=== PATIENT | female | born 2000 | race Caucasian/White ===

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

== ENCOUNTER 2021-02-17 19:42 | Emergency (ER) | payer BC, SELFPAY ==
--- NOTE | 2021-02-17 19:43 | ED.URI ---
HPI - URI/Sore Throat General Chief Complaint: Upper Respiratory Infection Stated Complaint: CONGESTION/SORE THROAT/HEADACHE Time Seen by Provider: 02/17/21 19:43 Source: patient and RN notes reviewed History of Present Illness HPI Narrative: Patient is a 20-year-old female who presents the urgent care with complaints of cough, sore throat, congestion and headache. Patient states that the congestion started 3 days ago but most of her symptoms just started yesterday. Patient states that she was worse when she woke up today. Patient has been taking Irena-[place] and Aleve for her symptoms. Patient denies of any recent Covid exposures. States that she has had the Covid vaccine. Patient denies any fever, nausea, vomiting. No other acute complaints. No acute distress noted. Patient aware of the plan of care. Some parts of this dictation were generated by voice recognition software and may contain typographical and/or grammatical inaccuracies. Related Data Home Medications Medication Instructions Recorded Confirmed fludrocortisone 0.1 mg PO DAILY 01/26/20 10/24/20 sertraline 25 mg PO DAILY 01/26/20 10/24/20 norethindrone-e.estradiol-iron 1 tablet PO DAILY 10/24/20 10/24/20 guanfacine 2 mg PO DAILY 02/17/21 02/17/21 midodrine 2.5 mg PO TID 02/17/21 02/17/21 Allergies Allergy/AdvReac Type Severity Reaction Status Date / Time No Known Allergies Allergy Verified 10/24/20 11:06 Review of Systems Review of Systems: CONSTITUTIONAL: Denies fever, chills, or sweats. EYES: Denies visual changes, redness, or discharge. ENT: Reports of nasal congestion, sore throat CARDIOVASCULAR: Denies chest pain, palpitations, or edema. RESPIRATORY: Reports of cough GASTROINTESTINAL: Denies abdominal pain, nausea, vomiting, or diarrhea. GENITOURINARY: Denies dysuria or hematuria. SKIN: Denies rash or itching. MUSCULOSKELETAL: Denies back pain, joint pain, or myalgia. NEUROLOGIC: Reports of headache All other systems reviewed are negative, except as documented in HPI. [facility] Past Medical History Medical History Asthma Hx of migraines Nasal fracture Vasovagal syncope Surgical History Surgical History History of nasal surgery Family History Family History Father Alive and well Mother Alive and well Social History Social History Smoking status: Never smoker Tobacco type: cigarettes Second hand tobacco smoke exposure: No Alcohol intake: current Substance use: never Gender identity (if verbalized by the patient): Female Comments At the time of my signature, I reviewed and agree with the nursing past medical, surgical, social, and family history. There is no relevant family history pertinent to the patient complaint. Exam Narrative: GENERAL: This is a well-nourished, well-developed patient, in no apparent distress. HEAD: normocephalic, atraumatic. EYES: PERRL. Sclera clear/white. Vision is grossly intact. EARS: External ears normal, auditory canals clear and without drainage, TMs normal without perforation. Hearing grossly intact. NOSE: External nose normal with no obvious nasal discharge. Mild bilateral erythemic nares with clear to yellow rhinorrhea THROAT: Mucous membranes moist, posterior pharynx clear. Moderate postnasal drainage NECK: Neck supple CARDIOVASCULAR: Regular rate and rhythm without murmurs, gallops, or rubs. RESPIRATORY: Clear to auscultation. Breath sounds equal bilaterally. No wheezes, rales, or rhonchi. SKIN: warm, intact with no suspicious lesions or rash, good texture and turgor. NEURO: awake, alert, and oriented to person, place and time. There were no obvious focal neurologic abnormalities. EXTREMITIES: No clubbing, cyanosis, or edema. Course Vital Signs Vital signs: Vital Signs Temperature 98.3 F 02/17/
[2021-02-17 19:47] VITALS: BP 106/73; PULSE 82; RESP 16; TEMP 36.8; O2SAT 99
[2021-02-17 19:51] VITALS: BP 106/73; PULSE 82; RESP 16; TEMP 36.8; O2SAT 99
== END 2021-02-17 20:01 | disposition home or self-care (01) ==
PROVIDERS: Emergency Provider Nurse Practitioner Family; PCP Family Medicine
DX: J06.9 Acute upper respiratory infection, unspecified (principal); J45.909 Unspecified asthma, uncomplicated
CPT/HCPCS: 87081; 87804; 87880; 99213; G0463

== ENCOUNTER 2021-05-11 14:07 | Emergency (ER) | payer BC, SELFPAY ==
[2021-05-11 14:12] VITALS: BP 106/69; PULSE 120; RESP 12; TEMP 37.2; O2SAT 100
--- NOTE | 2021-05-11 14:15 | ED.URI ---
HPI - URI/Sore Throat General Chief Complaint: Upper Respiratory Infection Stated Complaint: Sore throat, cough, rash Time Seen by Provider: 05/11/21 14:15 Source: patient and RN notes reviewed Mode of arrival: ambulatory Limitations: no limitations History of Present Illness HPI Narrative: 21 y/o female presented for c/o cough, sore throat, sinus pressure/congestion x1 week and rash to body surface x2 days. Denies cp, palpitations, sob, wheezing, n/v/d/f/c. Rash feels like burning sensation, minimally pruritic. Denies changes to lotions, soap, detergent etc. Taking zyrtec and Benadryl. Not boosted for covid. Denies sick contacts. MD elicited complaint: cough Related Data Home Medications Medication Instructions Recorded Confirmed fludrocortisone 0.1 mg PO DAILY 01/26/20 02/17/21 sertraline 50 mg PO DAILY 01/26/20 02/17/21 norethindrone-e.estradiol-iron 1 tablet PO DAILY 10/24/20 02/17/21 guanfacine 2 mg PO DAILY 02/17/21 02/17/21 midodrine 2.5 mg PO TID 02/17/21 02/17/21 Allergies Allergy/AdvReac Type Severity Reaction Status Date / Time No Known Allergies Allergy Verified 10/24/20 11:06 Review of Systems Review of Systems: CONSTITUTIONAL: denies malaise, chills, sweats, fever EYES: Denies visual changes, redness, or discharge ENT: Reports rhinorrhea, congestion, sinus pain, otalgia, sore throat CARDIOVASCULAR: Denies chest pain, palpitations, edema RESPIRATORY: Denies cough, sob reports post nasal drainage GASTROINTESTINAL: Denies abdominal pain, nausea, vomiting, diarrhea SKIN: Reports rash MUSCULOSKELETAL: Denies myalgia NEUROLOGIC: Denies headache PMFSH Past Medical History Medical History Asthma Hx of migraines Nasal fracture Vasovagal syncope Surgical History Surgical History History of nasal surgery Family History Family History Father Alive and well Mother Alive and well Social History Social History Smoking status: Never smoker Tobacco type: cigarettes Second hand tobacco smoke exposure: No Alcohol intake: current Substance use: never Gender identity (if verbalized by the patient): Female Exam Narrative: GENERAL: Ill-appearing, nontoxic no acute distress. HEAD: Normocephalic EYES: PERRLA, conjunctivae clear ENT: Mucous membranes moist. TM pearly gauthier with light reflex bilaterally; no tragal tenderness. Oropharynx erythematous with tonsillar exudate, no drooling, no hoarseness, no trismus, uvula midline. No tripod positioning, muffled voice, soft palate or pharyngeal wall bulging NECK: Supple. anterior cervical lymphadenopathy CHEST: Clear to auscultation, breath sounds equal. No wheezing, rhonchi, rales, or stridor. No respiratory distress, speaks in full sentences. HEART: Regular rate and rhythm. No murmur heard. SKIN: Warm, dry, scattered erythematous maculopapular rash to left antecubital, right foot, left thigh NEURO: Alert and oriented x3. PSYCH: Normal mood and affect Course Course Emergency Course: Patient is aware of diagnosis, understands and agrees to treatment plan. Anticipatory guidance given. Patient agrees to follow-up as directed and is aware of reasons to seek care at the emergency department. Portions of this record may have been created with voice recognition software Level of Care: Express Care Visit Vital Signs Vital signs: Vital Signs Temperature 99.0 F 05/11/21 14:12 Pulse Rate 120 H 05/11/21 14:12 Respiratory Rate 12 05/11/21 14:12 Blood Pressure 106/69 05/11/21 14:12 Pulse Oximetry 100 05/11/21 14:12 Temperature 99.0 F 05/11/21 14:12 Pulse Rate 120 H 05/11/21 14:12 Respiratory Rate 12 05/11/21 14:12 Blood Pressure 106/69 05/11/21 14:12 Pulse Oximetry 100 05/11/21 14:12 reviewed
== END 2021-05-11 14:52 | disposition home or self-care (01) ==
PROVIDERS: Emergency Provider Nurse Practitioner Family
DX: L30.9 Dermatitis, unspecified (principal); J02.9 Acute pharyngitis, unspecified; J45.909 Unspecified asthma, uncomplicated
CPT/HCPCS: 87081; 87880; 99213; G0463

== ENCOUNTER 2021-07-05 10:01 | Emergency (ER) | payer BC, SELFPAY ==
[2021-07-05 10:08] VITALS: BP 124/87; PULSE 107; RESP 16; TEMP 36.6; O2SAT 100
--- NOTE | 2021-07-05 10:09 | ED.URI ---
HPI - URI/Sore Throat General Chief Complaint: Upper Respiratory Infection Stated Complaint: headache, congestion Source: patient and RN notes reviewed Mode of arrival: ambulatory Limitations: no limitations History of Present Illness HPI Narrative: 21-year-old female presents with concern for sinus congestion, head congestion, headache, postnasal drainage, sore throat, cough. Reports symptoms started last night. She denies fever, earache. Reports slight body aches. Reports she was in contact with her mother and grandparents who had similar symptoms. She reports her grandparents tested negative for COVID. She denies any [id number] intervention. MD elicited complaint: cough and nasal congestion Related Data Home Medications Medication Instructions Recorded Confirmed fludrocortisone 0.1 mg PO DAILY 01/26/20 07/05/21 sertraline 50 mg PO DAILY 01/26/20 07/05/21 norethindrone-e.estradiol-iron 1 tablet PO DAILY 10/24/20 07/05/21 guanfacine 2 mg PO DAILY 02/17/21 07/05/21 midodrine 2.5 mg PO TID 02/17/21 07/05/21 Allergies Allergy/AdvReac Type Severity Reaction Status Date / Time No Known Allergies Allergy Verified 07/05/21 10:11 Review of Systems Review of Systems: CONSTITUTIONAL: Denies malaise, chills, sweats, or fever. EYES: Denies visual changes, redness, or discharge. ENT: Reports rhinorrhea, congestion. Denies sinus pain, otalgia and sore throat. CARDIOVASCULAR: Denies chest pain, palpitations, or edema. RESPIRATORY: Reports cough. Denies dyspnea. GASTROINTESTINAL: Denies abdominal pain, nausea, vomiting, diarrhea SKIN: Denies rash or itching. MUSCULOSKELETAL: Reports myalgia. NEUROLOGIC: Reports headache. All systems reviewed & are unremarkable except as noted in HPI and below PMFSH Past Medical History Medical History Asthma Hx of migraines Nasal fracture Vasovagal syncope Surgical History Surgical History History of nasal surgery Family History Family History Father Alive and well Mother Alive and well Social History Social History Smoking status: Never smoker Tobacco type: cigarettes Second hand tobacco smoke exposure: No Alcohol intake: current Substance use: never Gender identity (if verbalized by the patient): Female Comments At time of signature, agree with nursing past medical, surgical, social and family history. There is no relevant family history pertinent to the presenting complaint Exam Narrative: GENERAL: Well-appearing, well-nourished, and in no acute distress. HEAD: Normocephalic EYES: PERRLA, conjunctivae clear ENT: Nares clear, turbinates edematous and erythematous, clear discharge. Mucous membranes moist. TM pearly gauthier with dull light reflex bilaterally; no tragal tenderness. Oropharynx not erythematous without lesions. Tonsils not enlarged and without exudate, no drooling, no hoarseness, no trismus, uvula midline. NECK: Supple. No lymphadenopathy CHEST: Clear to auscultation, breath sounds equal. No wheezing, rhonchi, rales, or stridor. No respiratory distress, speaks in full sentences. HEART: Regular rate and rhythm. No murmur heard. SKIN: Warm, dry, no rash. NEURO: Alert and oriented x3. PSYCH: Normal mood and affect Course Course Emergency Course: Patient is aware of diagnosis, understands and agrees to treatment plan. Anticipatory guidance given. Patient agrees to follow-up as directed and is aware of reasons to seek care at the emergency department. Portions of this record may have been created with voice recognition software Level of Care: Express Care Visit Vital Signs Vital signs: Reviewed. MDM - URI/Sore Throat MDM Narrative Medical decision making narrative: Differential diagnosis considered: Nevarez virus, strep ph
== END 2021-07-05 10:55 | disposition home or self-care (01) ==
PROVIDERS: Emergency Provider Nurse Practitioner
DX: J06.9 Acute upper respiratory infection, unspecified (principal)
CPT/HCPCS: 87804; 99213; G0463

== ENCOUNTER 2022-05-22 09:39 | Emergency (ER) | payer BC, SELFPAY ==
[2022-05-22 09:46] VITALS: BP 122/78; PULSE 78; RESP 16; TEMP 37.2; O2SAT 100
--- NOTE | 2022-05-22 09:47 | ED.URI ---
HPI - URI/Sore Throat General Chief Complaint: Upper Respiratory Infection Stated Complaint: FEVER/CONGESITON Source: patient and RN notes reviewed History of Present Illness HPI Narrative: 22-year-old female presents to urgent care complaints congestion x2 weeks. Patient states she developed a fever of 101 F today. Patient reports postnasal drip as well as a slight cough. Patient denies any chest pain, shortness of breath, vomiting, or diarrhea. Denies any abdominal pain. Denies any sore throat or ear pain. Patient has been taking allergy pills and Flonase at home with minimal relief. Some parts of this dictation were generated by voice recognition software and may contain typographical and/or grammatical inaccuracies. Related Data Home Medications Medication Instructions Recorded Confirmed fludrocortisone 0.1 mg tablet 0.1 mg PO DAILY 01/26/20 07/05/21 sertraline 25 mg tablet 50 mg PO DAILY 01/26/20 07/05/21 norethindrone 1 mg-e. estradiol 20 1 tablet PO DAILY 10/24/20 07/05/21 mcg (24)-iron 75 mg (4) chew tablet guanfacine 2 mg tablet,extended 2 mg PO DAILY 02/17/21 07/05/21 release 24 hr dicyclomine 20 mg tablet mg 05/22/22 05/22/22 ondansetron 4 mg disintegrating mg 05/22/22 05/22/22 tablet pantoprazole 40 mg tablet,delayed mg PO 05/22/22 05/22/22 release Allergies Allergy/AdvReac Type Severity Reaction Status Date / Time No Known Allergies Allergy Verified 05/22/22 09:53 Review of Systems Review of Systems: Pertinent positives and pertinent negatives per HPI. [facility] Past Medical History Medical History Asthma Hx of migraines Nasal fracture Vasovagal syncope Surgical History Surgical History History of nasal surgery Family History Family History Father Alive and well Mother Alive and well Social History Social History Smoking status: Never smoker Tobacco type: cigarettes Second hand tobacco smoke exposure: No Alcohol intake: current Substance use: never Living arrangements: with family Occupation/Education: student Gender identity (if verbalized by the patient): Female Comments At the time of my signature, I reviewed and agree with the nursing past medical, surgical, social, and family history. There is no relevant family history pertinent to the patient complaint. Exam Narrative: GENERAL: This is a well-nourished, well-developed patient, in no apparent distress. HEAD: normocephalic, atraumatic. EYES: PERRL. Sclera clear/white. Vision is grossly intact. EARS: External ears normal, auditory canals clear and without drainage, TMs normal without perforation. Hearing grossly intact. NOSE: External nose normal with no obvious nasal discharge, nares red, no rhinorrhea. Congestion. THROAT: Mucous membranes moist, posterior pharynx clear. NECK: Neck supple, non-tender without lymphadenopathy, masses or thyromegaly. CARDIOVASCULAR: Regular rate and rhythm without murmurs, gallops, or rubs. RESPIRATORY: Clear to auscultation. Breath sounds equal bilaterally. No wheezes, rales, or rhonchi. GASTROINTESTINAL: Abdomen soft, non-tender, nondistended. Bowel sounds are active. No hepato-splenomegaly, or palpable masses. No guarding. SKIN: warm, intact with no suspicious lesions or rash, good texture and turgor. NEURO: awake, alert, and oriented to person, place and time. There were no obvious focal neurologic abnormalities. Course Course Level of Care: Express Care Visit Vital Signs Vital signs: Vital Signs Temperature 98.9 F 05/22/22 09:46 Pulse Rate 78 05/22/22 09:46 Respiratory Rate 16 05/22/22 09:46 Blood Pressure 122/78 05/22/22 09:46 Pulse Oximetry 100 05/22/22 09:46 Temperature 98.9 F 05/22/22 09:46 Pulse Rate
== END 2022-05-22 10:15 | disposition home or self-care (01) ==
PROVIDERS: Emergency Provider Nurse Practitioner Family; PCP Family Medicine
DX: J01.00 Acute maxillary sinusitis, unspecified (principal)
CPT/HCPCS: 99213; G0463